=== PATIENT | female | born 1995 | race Asian ===

== ENCOUNTER 2019-03-30 22:13 | Emergency (ER) | payer OTHER ==
[~2019-03-30] VITALS: Ht 175.3 cm; Wt 74.4 kg
[2019-03-30 22:44] VITALS: Ht 175.3 cm; Wt 74.4 kg
[2019-03-31 01:28] VITALS: BP 122/75
== END 2019-03-31 01:28 | disposition home or self-care (01) ==
LOC: ED 22:13
DX: J02.9 Acute pharyngitis, unspecified (principal)